=== PATIENT | female | born 1980 | race Two or more races ===

== ENCOUNTER 2021-09-10 14:12 | Emergency (ER) | payer OTHER ==
[~2021-09-10] VITALS: Ht 157.5 cm; Wt 92.5 kg
[2021-09-10] MEDS ORDERED: EC-NAPROSYN375 MG PO (20:31)
== END 2021-09-10 20:37 | disposition home or self-care (01) ==
LOC: ER 14:12
DX: N93.9 Abnormal uterine and vaginal bleeding, unspecified (principal); R10.2 Pelvic and perineal pain